=== PATIENT | female | born 1980 | race Two or more races ===

== ENCOUNTER 2018-05-08 02:42 | Inpatient (IN) | payer BC, MEDICAID ==
[~2018-05-08] VITALS: Ht 157.5 cm; Wt 68.0 kg
[2018-05-08] MEDS ORDERED: PREN1TAB78 MT (03:52)
[2018-05-08] MEDS ORDERED: MAGNESIUM 20 G PREMIX (L & D) 500 ML IV SCH (04:36)
[2018-05-08] MEDS ORDERED: MAGNESIUM 4 G PREMIX 100 ML IV SCH (04:45)
[2018-05-08] MEDS ORDERED: MAGNESIUM 2 G PREMIX 50 ML IV SCH (05:00)
[2018-05-08] MEDS: LACTATED RINGERS 1,000 ML IV SCH ×2 (05:40→18:54)
[2018-05-08] MEDS: BETAMETHASONE ACET/BETAMET 30 MG/5 ML VIAL IM SCH (05:44)
[2018-05-08] MEDS: AMPICILLIN 2,000 MG in SODIUM CHLORIDE 0.9% 100 ML IV SCH ×3 (05:55→18:54)
[2018-05-08 06:21] LABS: CLARITY URINE CLEAR (CLEAR); COLOR URINE YELLOW (YELLOW); KETONES URINE 1+ (NEGATIVE); LEUKOCYTE ESTERASE URINE NEGATIVE (NEGATIVE); NITRITE URINE NEGATIVE (NEGATIVE); OCCULT BLOOD URINE TRACE (NEGATIVE); PH URINE 6.5 (4.5-8.0); PROTEIN URINE NEGATIVE (NEGATIVE); SPECIFIC GRAVITY URINE 1.008 (1.005-1.030); UROBILINOGEN URINE 0.2 E.U./dL (0.2-1.0)
[2018-05-08 06:21] LABS: HEMATOCRIT. 36.2 % (36.0-48.0); HEMOGLOBIN. 11.8 g/dL (12.0-16.0); MEAN CORPUSCULAR HEMOGLOBIN 26.5 pg (28.0-32.0); MEAN CORPUSCULAR VOLUME 81.2 fL (81.0-99.0); MEAN PLATELET VOLUME 8.6 fl (7.4-10.4); PLATELET 241 x1000/uL (130-400); RED BLOOD CELL COUNT 4.45 mill/uL (4.2-5.4); RED CELL DISTRIBUTION WIDTH 15.2 % (11.6-14.6)
[2018-05-08 06:32] LABS: PARTIAL THROMBOPLASTIN TIME 27.5 sec (23.4-31.0)
[2018-05-08] MEDS: AZITHROMYCIN 500 MG in DEXT 5% WATER 250 ML IV SCH (06:55)
[2018-05-08 06:59] LABS: *AMPHETAMINES SCREEN URINE NEGATIVE (NEGATIVE); *BENZODIAZEPINES SCREEN URINE NEGATIVE (NEGATIVE); *COCAINE SCREEN URINE NEGATIVE (NEGATIVE); OPIATES URINE SCREEN NEGATIVE (NEGATIVE); PHENCYCLIDINE URINE SCREEN NEGATIVE (NEGATIVE)
[2018-05-08 07:00] LABS: CANNABINOID URINE SCREEN NEGATIVE (NEGATIVE)
[2018-05-08 07:10] LABS: *BARBITURATES SCREEN URINE NEGATIVE (NEGATIVE)
[2018-05-08 07:12] LABS: METHADONE URINE SCREEN NEGATIVE (NEGATIVE)
[2018-05-08 07:14] LABS: HEPATITIS B SURFACE ANTIGEN NEGATIVE
[2018-05-08 08:15] LABS: PLATELET ESTIMATE NORMAL
[2018-05-09] MEDS: AMPICILLIN 2,000 MG in SODIUM CHLORIDE 0.9% 100 ML IV SCH ×4 (00:38→17:30)
[2018-05-09] MEDS: BETAMETHASONE ACET/BETAMET 30 MG/5 ML VIAL IM SCH (05:37)
[2018-05-09] MEDS: LACTATED RINGERS 1,000 ML IV SCH ×3 (05:38→15:00)
[2018-05-09] MEDS: AZITHROMYCIN 500 MG in DEXT 5% WATER 250 ML IV SCH (06:45)
[2018-05-09] MEDS: DOCUSATE SODIUM 100MG CAPSULE PO SCH (22:43)
[2018-05-10] MEDS: AMPICILLIN 2,000 MG in SODIUM CHLORIDE 0.9% 100 ML IV SCH (00:01)
[2018-05-10] MEDS: LACTATED RINGERS 1,000 ML IV SCH ×3 (01:31→18:12)
[2018-05-10] MEDS: AMOXICILLIN 250MG CAPSULE PO SCH ×3 (06:12→18:11)
[2018-05-10] MEDS: PRENATAL VIT/FE FUMARATE/FA TABLET PO SCH (09:31)
[2018-05-10] MEDS: AZITHROMYCIN 250 MG TABLET PO SCH (09:31)
[2018-05-10] MEDS: DOCUSATE SODIUM 100MG CAPSULE PO SCH ×2 (09:31→21:00)
[2018-05-11] MEDS: AMOXICILLIN 250MG CAPSULE PO SCH ×3 (02:01→18:00)
[2018-05-11] MEDS: LACTATED RINGERS 1,000 ML IV SCH ×3 (02:06→19:03)
[2018-05-11] MEDS: AZITHROMYCIN 250 MG TABLET PO SCH (09:48)
[2018-05-11] MEDS: DOCUSATE SODIUM 100MG CAPSULE PO SCH ×2 (09:48→21:32)
[2018-05-11] MEDS: PRENATAL VIT/FE FUMARATE/FA TABLET PO SCH (09:48)
[2018-05-11] MEDS ORDERED: MAGNESIUM HYDROXIDE 400MG/5ML 30ML UDC PO SCH (13:00)
[2018-05-12] MEDS: AMOXICILLIN 250MG CAPSULE PO SCH ×3 (01:57→17:26)
[2018-05-12] MEDS: LACTATED RINGERS 1,000 ML IV SCH ×3 (03:35→20:03)
[2018-05-12] MEDS: PRENATAL VIT/FE FUMARATE/FA TABLET PO SCH (09:03)
[2018-05-12] MEDS: AZITHROMYCIN 250 MG TABLET PO SCH (09:04)
[2018-05-12] MEDS: DOCUSATE SODIUM 100MG CAPSULE PO SCH ×2 (09:04→17:26)
[2018-05-13] MEDS: AMOXICILLIN 250MG CAPSULE PO SCH ×3 (01:36→17:40)
[2018-05-13] MEDS: LACTATED RINGERS 1,000 ML IV SCH ×2 (05:05→13:03)
[2018-05-13] MEDS: DOCUSATE SODIUM 100MG CAPSULE PO SCH ×2 (09:16→17:40)
[2018-05-13] MEDS: PRENATAL VIT/FE FUMARATE/FA TABLET PO SCH (09:16)
[2018-05-13] MEDS: AZITHROMYCIN 250 MG TABLET PO SCH (09:16)
[2018-05-14] MEDS: AMOXICILLIN 250MG CAPSULE PO SCH ×3 (01:37→17:50)
[2018-05-14] MEDS: LACTATED RINGERS 1,000 ML IV SCH (05:25)
[2018-05-14] MEDS: PRENATAL VIT/FE FUMARATE/FA TABLET PO SCH (09:01)
[2018-05-14] MEDS: AZITHROMYCIN 250 MG TABLET PO SCH (09:01)
[2018-05-14] MEDS: DOCUSATE SODIUM 100MG CAPSULE PO SCH ×2 (09:02→17:51)
[2018-05-15] MEDS: LACTATED RINGERS 1,000 ML IV SCH ×2 (00:18→22:31)
[2018-05-15] MEDS: PRENATAL VIT/FE FUMARATE/FA TABLET PO SCH (09:25)
[2018-05-15] MEDS: AMOXICILLIN 250MG CAPSULE PO SCH ×2 (09:25→17:54)
[2018-05-15] MEDS: DOCUSATE SODIUM 100MG CAPSULE PO SCH ×2 (09:25→17:53)
[2018-05-16] MEDS: AMOXICILLIN 250MG CAPSULE PO SCH ×2 (02:00→08:37)
[2018-05-16] MEDS: PRENATAL VIT/FE FUMARATE/FA TABLET PO SCH (08:37)
[2018-05-16] MEDS: DOCUSATE SODIUM 100MG CAPSULE PO SCH (08:37)
[2018-05-16] MEDS: LACTATED RINGERS 1,000 ML IV SCH (18:58)
[2018-05-16] MEDS ORDERED: AMOXICILLIN 250MG CAPSULE PO SCH (19:45)
[2018-05-17] MEDS: LACTATED RINGERS 1,000 ML IV SCH ×2 (05:04→20:57)
[2018-05-17 06:42] LABS: PARTIAL THROMBOPLASTIN TIME 26.7 sec (23.4-31.0); PROTHROMBIN TIME 9.7 sec (9.1-11.1)
[2018-05-17 06:56] LABS: HEMATOCRIT. 35.5 % (36.0-48.0); HEMOGLOBIN. 11.9 g/dL (12.0-16.0); MEAN CORPUSCULAR HEMOGLOBIN 27.2 pg (28.0-32.0); MEAN CORPUSCULAR VOLUME 81.2 fL (81.0-99.0); MEAN PLATELET VOLUME 7.9 fl (7.4-10.4); PLATELET 224 x1000/uL (130-400); RED BLOOD CELL COUNT 4.38 mill/uL (4.2-5.4)
[2018-05-17] MEDS: DOCUSATE SODIUM 100MG CAPSULE PO SCH ×2 (08:59→18:05)
[2018-05-17] MEDS: PRENATAL VIT/FE FUMARATE/FA TABLET PO SCH (08:59)
[2018-05-17 18:21] LABS: PLATELET ESTIMATE NORMAL
[2018-05-18] MEDS: LACTATED RINGERS 1,000 ML IV SCH (06:49)
[2018-05-18] MEDS ORDERED: CITRIC ACID/SODIUM CITRATE SOLN 30ML UDC PO SCH (08:15)
[2018-05-18] MEDS ORDERED: MORPHINE SULFATE/PF 1MG/ML 10ML AMP ONE (08:23)
[2018-05-18] MEDS: PRENATAL VIT/FE FUMARATE/FA TABLET PO SCH (09:00)
[2018-05-18] MEDS ORDERED: CEFAZOLIN SODIUM 1000MG/VIAL ONE (09:02)
[2018-05-18] MEDS ORDERED: PHENYLEPHRINE HCL 10 MG/ML 1ML (IV VIAL) IV ONE (09:03)
[2018-05-18] MEDS ORDERED: OXYTOCIN 10 UNITS/ML 1ML ONE (09:05)
[2018-05-18] MEDS ORDERED: EPHEDRINE SULFATE 50MG/ML VIAL ONE (09:05)
[2018-05-18] MEDS ORDERED: ONDANSETRON HCL 4MG/2ML INJ ONE (09:06)
[2018-05-18] MEDS ORDERED: METOCLOPRAMIDE HCL 10MG/2ML VIAL ONE (09:06)
[2018-05-18] MEDS ORDERED: MIDAZOLAM HCL 2 MG/2 ML VIAL ONE (09:07)
[2018-05-18] MEDS ORDERED: LANOLIN OINT 0.25 GM TUBE TOP PRN (09:45)
[2018-05-18] MEDS ORDERED: TETANUS, DIPHTHERIA, PERTUSSIS VAC/PF 0.5ML (>7YR OLD) IM ONE (09:45)
[2018-05-18] MEDS ORDERED: HYDROCODONE/ACETAMINOPHEN 5/325MG TABLET PO PRN (09:45)
[2018-05-18] MEDS ORDERED: DIPHENHYDRAMINE 25MG CAPSULE PO PRN (09:45)
[2018-05-18] MEDS ORDERED: IBUPROFEN 400MG TABLET PO PRN (09:45)
[2018-05-18] MEDS ORDERED: ONDANSETRON HCL 4MG/2ML INJ IV PRN ×2 (09:45→10:00)
[2018-05-18] MEDS ORDERED: INFLUENZA VIRUS VACCINE(AFLURIA) 0.5ML SYR IM ONE (09:45)
[2018-05-18] MEDS: DEXT 5%/LR + PITOCIN 20UNITS/L 1,000 ML IV SCH ×2 (10:11→11:34)
[2018-05-18] MEDS: SIMETHICONE 80MG TABLET CHEW PO SCH ×2 (13:00→17:00)
[2018-05-18 15:00] VITALS: BP 101/66
[2018-05-18 18:00] VITALS: BP 115/63
[2018-05-18 20:00] VITALS: BP 111/66
[2018-05-18] MEDS: KETOROLAC 30MG/ML VIAL IV PRN (23:04)
[2018-05-19 00:01] VITALS: BP 95/62
[2018-05-19 05:30] VITALS: BP 99/56
[2018-05-19] MEDS: KETOROLAC 30MG/ML VIAL IV PRN (05:30)
[2018-05-19] MEDS: FERROUS SULFATE 325MG TABLET PO SCH ×2 (07:30→12:30)
[2018-05-19 08:31] LABS: BASOPHILS % 0.4 % (0.0-2.0); EOSINOPHILS % 0.6 % (0.0-5.0); HEMATOCRIT. 35.4 % (36.0-48.0); HEMOGLOBIN. 11.7 g/dL (12.0-16.0); LYMPHOCYTES % 9.6 % (20.0-50.0); MEAN CORPUSCULAR HEMOGLOBIN 26.6 pg (28.0-32.0); MEAN CORPUSCULAR VOLUME 80.6 fL (81.0-99.0); MEAN PLATELET VOLUME 7.5 fl (7.4-10.4); MONOCYTES % 5.4 % (2.0-8.0); PLATELET 201 x1000/uL (130-400); RED BLOOD CELL COUNT 4.39 mill/uL (4.2-5.4); RED CELL DISTRIBUTION WIDTH 15.4 % (11.6-14.6)
[2018-05-19] MEDS ORDERED: PRENATAL VIT/FE FUMARATE/FA TABLET PO SCH (09:00)
[2018-05-19 09:15] VITALS: BP 108/64
[2018-05-19] MEDS: IBUPROFEN 800MG TABLET PO PRN ×2 (09:54→18:05)
[2018-05-19] MEDS: SIMETHICONE 80MG TABLET CHEW PO SCH ×4 (09:54→22:05)
[2018-05-19] MEDS: PRENATAL VIT/FE FUMARATE/FA TABLET PO SCH (09:54)
[2018-05-19 15:00] VITALS: BP 105/70
[2018-05-19 21:15] VITALS: BP 103/69
[2018-05-20] MEDS: DOCUSATE SODIUM 100MG CAPSULE PO SCH ×2 (02:07→20:15)
[2018-05-20] MEDS: IBUPROFEN 800MG TABLET PO PRN ×3 (02:07→20:14)
[2018-05-20 07:54] VITALS: BP 100/68
[2018-05-20] MEDS: PRENATAL VIT/FE FUMARATE/FA TABLET PO SCH (08:42)
[2018-05-20] MEDS: SIMETHICONE 80MG TABLET CHEW PO SCH ×4 (08:42→20:14)
[2018-05-20] MEDS: FERROUS SULFATE 325MG TABLET PO SCH ×3 (08:43→18:03)
[2018-05-20] MEDS: BISACODYL 10MG SUPP PR PRN (10:39)
[2018-05-20 16:16] VITALS: BP 96/69
[2018-05-20 20:00] VITALS: BP 110/56
[2018-05-20 22:30] LABS: BASOPHILS % 0.4 % (0.0-2.0); EOSINOPHILS % 2.2 % (0.0-5.0); HEMATOCRIT. 33.5 % (36.0-48.0); LYMPHOCYTES % 16.5 % (20.0-50.0); MEAN CORPUSCULAR HEMOGLOBIN 26.9 pg (28.0-32.0); MEAN CORPUSCULAR VOLUME 81.9 fL (81.0-99.0); MEAN PLATELET VOLUME 7.6 fl (7.4-10.4); MONOCYTES % 3.3 % (2.0-8.0); NEUTROPHILS % 77.6 % (40.0-76.0); PLATELET 255 x1000/uL (130-400); RED BLOOD CELL COUNT 4.09 mill/uL (4.2-5.4); RED CELL DISTRIBUTION WIDTH 15.7 % (11.6-14.6)
[2018-05-20 23:49] VITALS: BP 107/51
[2018-05-21] MEDS: BISACODYL 10MG SUPP PR PRN (01:33)
[2018-05-21 04:00] VITALS: BP 106/55
[2018-05-21] MEDS: IBUPROFEN 800MG TABLET PO PRN (04:48)
[2018-05-21 07:58] VITALS: BP 91/51
[2018-05-21] MEDS: SIMETHICONE 80MG TABLET CHEW PO SCH (09:00)
[2018-05-21] MEDS: PRENATAL VIT/FE FUMARATE/FA TABLET PO SCH (09:00)
[2018-05-21] MEDS: FERROUS SULFATE 325MG TABLET PO SCH (09:00)
== END 2018-05-21 12:20 | disposition home or self-care (01) | DRG 788 ==
LOC: 8 EST LDRP 02:42 → OBSVTOIN 04:00 → INTOOBSV 04:00 → OBSVTOIN 08:55 → 8 EST LDRP 05-09 09:54 → 8 EST A/PP 05-14 14:48 → 8 EST LDRP 05-16 16:39 → 8EST 05-18 21:55
PROVIDERS: ADMIT Specialist; ATTEND Specialist
PROC: 10D00Z1 Extraction of Products of Conception, Low, Open Approach (ICD-10-PCS; principal; 2018-05-18)
DX: O34.211 Maternal care for low transverse scar from previous cesarean delivery (principal); O42.913 Preterm premature rupture of membranes, unspecified as to length of time between rupture and onset of labor, third trimester; O90.81 Anemia of the puerperium; D64.9 Anemia, unspecified; R87.612 Low grade squamous intraepithelial lesion on cytologic smear of cervix (LGSIL); O09.523 Supervision of elderly multigravida, third trimester; Z83.3 Family history of diabetes mellitus; Z37.0 Single live birth; Z3A.34 34 weeks gestation of pregnancy
CPT/HCPCS: 36415; 76805; 76815; 76818; 80305; 86592; 86703; 86762; 86850; 86900; 87070; 87077; 87340; 88307; 99281; G0378; J0290; J0456; J0690; J0702; J1885; J2250; J2274; J2370; J2405; J2590; J2765; J3475; J3490; J7050; J7060; J7120; A4315

== ENCOUNTER 2021-03-11 13:20 | Observation (INO) | payer BC, MEDICAID ==
[~2021-03-11] VITALS: Ht 154.9 cm; Wt 68.0 kg
[2021-03-11] MEDS ORDERED: PREN1TAB78 MT (15:20)
== END 2021-03-11 15:30 | disposition home or self-care (01) ==
LOC: 8 EST A/PP 13:20
PROVIDERS: ADMIT Specialist; ATTEND Specialist
DX: Z36.9 Encounter for antenatal screening, unspecified (principal); O09.523 Supervision of elderly multigravida, third trimester; Z3A.37 37 weeks gestation of pregnancy
CPT/HCPCS: 59025; 76815; 76818; G0378

== ENCOUNTER 2021-03-18 12:24 | Observation (INO) | payer MEDICAID ==
[~2021-03-18 12:24] MED LIST: PREN1TAB78 MT
== END 2021-03-18 15:54 | disposition home or self-care (01) ==
LOC: 8 EST LDRP 12:24
PROVIDERS: ADMIT Specialist; ATTEND Specialist
DX: O36.8130 Decreased fetal movements, third trimester, not applicable or unspecified (principal); O09.523 Supervision of elderly multigravida, third trimester; Z3A.39 39 weeks gestation of pregnancy
CPT/HCPCS: 59025; 76815; 76818; G0378; 99281

== ENCOUNTER 2021-03-21 09:05 | Inpatient (IN) | payer MEDICAID ==
[~2021-03-21] VITALS: Ht 152.4 cm; Wt 76.2 kg
[2021-03-21] MEDS ORDERED: METHYLERGONOVINE MALEATE 0.2 MG/ML IM PRN (10:30)
[2021-03-21] MEDS ORDERED: DEXT 5%/LR + PITOCIN 20UNITS/L 1,000 ML IV SCH (10:30)
[2021-03-21] MEDS ORDERED: LACTATED RINGERS 1,000 ML IV SCH (10:30)
[2021-03-21] MEDS ORDERED: CITRIC ACID/SODIUM CITRATE SOLN 30ML UDC PO NR (10:45)
[2021-03-21 11:38] LABS: BASOPHILS % 0.8 % (0.0-2.0); EOSINOPHILS % 0.9 % (0.0-5.0); HEMATOCRIT. 40.4 % (36.0-48.0); HEMOGLOBIN. 13.1 g/dL (12.0-16.0); LYMPHOCYTES % 20.2 % (20.0-50.0); MEAN CORPUSCULAR HEMOGLOBIN 26.7 pg (28.0-32.0); MEAN CORPUSCULAR VOLUME 82.1 fL (81.0-99.0); MEAN PLATELET VOLUME 8.3 fl (7.4-10.4); MONOCYTES % 4.5 % (2.0-8.0); NEUTROPHILS % 73.6 % (40.0-76.0); PLATELET 224 x1000/uL (130-400); RED BLOOD CELL COUNT 4.92 mill/uL (4.2-5.4); RED CELL DISTRIBUTION WIDTH 15.2 % (11.6-14.6)
[2021-03-21 11:41] LABS: CLARITY URINE CLEAR (CLEAR); COLOR URINE YELLOW (YELLOW); KETONES URINE 2+ (NEGATIVE); LEUKOCYTE ESTERASE URINE NEGATIVE (NEGATIVE); NITRITE URINE NEGATIVE (NEGATIVE); OCCULT BLOOD URINE NEGATIVE (NEGATIVE); PROTEIN URINE NEGATIVE (NEGATIVE); SPECIFIC GRAVITY URINE 1.019 (1.005-1.030); UROBILINOGEN URINE 0.2 E.U./dL (0.2-1.0)
[2021-03-21 12:03] LABS: *AMPHETAMINES SCREEN URINE NEGATIVE (NEGATIVE); *BARBITURATES SCREEN URINE NEGATIVE (NEGATIVE); *BENZODIAZEPINES SCREEN URINE NEGATIVE (NEGATIVE); *COCAINE SCREEN URINE NEGATIVE (NEGATIVE); METHADONE URINE SCREEN NEGATIVE (NEGATIVE); OPIATES URINE SCREEN NEGATIVE (NEGATIVE)
[2021-03-21 12:04] LABS: CANNABINOID URINE SCREEN NEGATIVE (NEGATIVE)
[2021-03-21 12:05] LABS: PHENCYCLIDINE URINE SCREEN NEGATIVE (NEGATIVE)
[2021-03-21] MEDS ORDERED: PHENYLEPHRINE HCL 10 MG/ML 1ML (IV VIAL) IV ONE (12:09)
[2021-03-21] MEDS ORDERED: FENTANYL CITRATE/PF 50MCG/ML 2ML VIAL ONE (12:09)
[2021-03-21] MEDS ORDERED: EPHEDRINE SULFATE 50MG/ML VIAL ONE (12:10)
[2021-03-21] MEDS ORDERED: MORPHINE SULFATE/PF 1MG/ML 10ML AMP ONE (12:10)
[2021-03-21] MEDS ORDERED: ONDANSETRON HCL 4MG/2ML INJ ONE (12:10)
[2021-03-21] MEDS ORDERED: CEFAZOLIN SODIUM 1000MG/VIAL ONE (12:10)
[2021-03-21] MEDS ORDERED: OXYTOCIN 10 UNITS/ML 1ML ONE (12:10)
[2021-03-21] MEDS ORDERED: DIPHENHYDRAMINE 50MG/ML VIAL ONE (12:10)
[2021-03-21] MEDS ORDERED: SODIUM CHLORIDE 0.9% 10ML VIAL ONE (12:12)
[2021-03-21] MEDS ORDERED: NALOXONE HCL 0.4 MG/ML 1ML VIAL IV PRN (13:00)
[2021-03-21] MEDS ORDERED: KETOROLAC 30MG/ML VIAL IV SCH (13:00)
[2021-03-21] MEDS ORDERED: BUTORPHANOL TARTRATE 2 MG/ML VIAL IV PRN (13:00)
[2021-03-21] MEDS ORDERED: METOCLOPRAMIDE HCL 10MG/2ML VIAL ONE (13:03)
[2021-03-21] MEDS ORDERED: DIPHENHYDRAMINE 25MG CAPSULE PO PRN (13:15)
[2021-03-21] MEDS ORDERED: IBUPROFEN 400MG TABLET PO PRN (13:15)
[2021-03-21] MEDS ORDERED: ONDANSETRON HCL 4MG/2ML INJ IV PRN (13:15)
[2021-03-21] MEDS ORDERED: BISACODYL 10MG SUPP PR PRN (13:15)
[2021-03-21] MEDS ORDERED: HYDROCODONE/ACETAMINOPHEN 5/325MG TABLET PO PRN (13:15)
[2021-03-21] MEDS ORDERED: LANOLIN OINT 7GM TUBE TOP PRN (13:15)
[2021-03-21] MEDS ORDERED: NALOXONE HCL 0.4MG/ML VIAL IV PRN (13:30)
[2021-03-21] MEDS: DEXT 5%/LR + PITOCIN 20UNITS/L 1,000 ML IV SCH ×2 (14:37→20:31)
[2021-03-21 14:57] LABS: HEPATITIS B SURFACE ANTIGEN NEGATIVE
[2021-03-21 15:43] LABS: PARTIAL THROMBOPLASTIN TIME 29.7 sec (23.4-31.0); PROTHROMBIN TIME 10.4 sec (9.6-11.0)
[2021-03-21 20:00] VITALS: BP 114/61
[2021-03-21] MEDS: DIPHENHYDRAMINE 50MG/ML VIAL IV PRN (20:30)
[2021-03-21] MEDS ORDERED: DOCUSATE SODIUM 100MG CAPSULE PO SCH (21:00)
[2021-03-21 23:30] VITALS: BP 108/62
[2021-03-22 04:30] VITALS: BP 103/53
[2021-03-22] MEDS ORDERED: KETOROLAC 30MG/ML VIAL IV SCH (05:00)
[2021-03-22] MEDS: DEXT 5%/LR + PITOCIN 20UNITS/L 1,000 ML IV SCH (05:01)
[2021-03-22] MEDS: DIPHENHYDRAMINE 50MG/ML VIAL IV PRN (05:02)
[2021-03-22 06:25] LABS: BASOPHILS % 0.3 % (0.0-2.0); EOSINOPHILS % 0.7 % (0.0-5.0); HEMATOCRIT. 33.5 % (36.0-48.0); HEMOGLOBIN. 11.2 g/dL (12.0-16.0); LYMPHOCYTES % 12.6 % (20.0-50.0); MEAN CORPUSCULAR HEMOGLOBIN 27.3 pg (28.0-32.0); MEAN CORPUSCULAR VOLUME 82.2 fL (81.0-99.0); MEAN PLATELET VOLUME 7.9 fl (7.4-10.4); MONOCYTES % 3.5 % (2.0-8.0); NEUTROPHILS % 82.9 % (40.0-76.0); PLATELET 165 x1000/uL (130-400); RED BLOOD CELL COUNT 4.08 mill/uL (4.2-5.4); RED CELL DISTRIBUTION WIDTH 14.7 % (11.6-14.6)
[2021-03-22 07:31] VITALS: BP 91/50
[2021-03-22] MEDS: MAGNESIUM/ALUMINUM HYDROXIDE/SIMETHICONE 30ML UDC PO SCH ×4 (08:43→21:28)
[2021-03-22] MEDS: FERROUS SULFATE 325MG TABLET PO SCH ×3 (08:44→18:06)
[2021-03-22] MEDS: PRENATAL VIT/FE FUMARATE/FA TABLET PO SCH (08:44)
[2021-03-22] MEDS: SIMETHICONE 80MG TABLET CHEW PO SCH ×4 (08:45→21:29)
[2021-03-22] MEDS: IBUPROFEN 800MG TABLET PO PRN (14:30)
[2021-03-22 16:08] VITALS: BP 91/51
[2021-03-22 20:00] VITALS: BP 113/61
[2021-03-23] MEDS: IBUPROFEN 800MG TABLET PO PRN ×2 (00:16→09:45)
[2021-03-23 04:00] VITALS: BP 105/62
[2021-03-23 07:34] VITALS: BP 113/61
[2021-03-23] MEDS: PRENATAL VIT/FE FUMARATE/FA TABLET PO SCH (09:45)
[2021-03-23] MEDS: SIMETHICONE 80MG TABLET CHEW PO SCH (09:45)
[2021-03-23] MEDS: FERROUS SULFATE 325MG TABLET PO SCH (09:45)
[2021-03-23] MEDS: MAGNESIUM/ALUMINUM HYDROXIDE/SIMETHICONE 30ML UDC PO SCH (09:45)
== END 2021-03-23 14:30 | disposition home or self-care (01) | DRG 540 ==
LOC: OBSVTOIN 09:05 → 8 EST LDRP 09:05 → 8EST 16:03
PROVIDERS: ADMIT Specialist; ATTEND Specialist
PROC: 10D00Z1 Extraction of Products of Conception, Low, Open Approach (ICD-10-PCS; principal; 2021-03-21)
DX: O34.211 Maternal care for low transverse scar from previous cesarean delivery (principal); D64.9 Anemia, unspecified; Z20.822 Contact with and (suspected) exposure to COVID-19; Z3A.39 39 weeks gestation of pregnancy; Z37.0 Single live birth; O90.81 Anemia of the puerperium
CPT/HCPCS: 36415; 80305; 81003; 85025; 86592; 86703; 86762; 86850; 86900; 87340; 87426; 88307; 99281; J0690; J1200; J1885; J2274; J2370; J2405; J2590; J2765; J3010; J3490; J7120